=== PATIENT | male | born 1985 | race Two or more races ===

== ENCOUNTER 2023-12-24 06:50 | Emergency (ER) | payer MEDICAID ==
[~2023-12-24] VITALS: Ht 172.7 cm; Wt 90.0 kg
[2023-12-24 07:02] VITALS: BP 160/90; PULSE 77; RESP 18; TEMP 98
[2023-12-24] MEDS ORDERED: IBUP-1492 PO (08:38)
[2023-12-24] MEDS ORDERED: PERCT PO (08:38)
[2023-12-24] MEDS: KETOROLAC TROMETHAMINE 60 MG/2 ML VIAL IM ONE (08:38)
== END 2023-12-24 09:08 | disposition home or self-care (01) ==
LOC: EMS 06:51
DX: S60.211A Contusion of right wrist, initial encounter (principal); S09.90XA Unspecified injury of head, initial encounter; V89.2XXA Person injured in unspecified motor-vehicle accident, traffic, initial encounter; Y93.89 Activity, other specified; Y92.89 Other specified places as the place of occurrence of the external cause; Y99.8 Other external cause status
CPT/HCPCS: 99283; 73110; 29125; 96372; J1885